=== PATIENT | female | born 1950 | race Caucasian/White ===

== ENCOUNTER → 2017-03-07 | Outpatient (CLI) | payer MEDICARE ==
[~2017-03-07] MED LIST: AMLO5TAB2 PO; ASPI81TA82 PO; ATOR40TA16 PO; ATOR40TA49 PO; CEPH-460 PO; CLOP75 PO; ESTR.625 PO; LISI-363 PO; LISI-515 PO; MECL25CH PO; METO50TA PO; PLAV75TA29 PO
[2017-03-07 14:16] LABS: HEMATOCRIT 41.4 % (35.0-46.0); MEAN CELL VOLUME 97.4 FL (80.0-100.0); MEAN CORPUSCULAR HEMOGLOBIN 34.1 PG (27.0-34.0); PLATELET COUNT 226 TH/MM3 (150-450); RED BLOOD COUNT 4.25 MIL/MM3 (4.00-5.30); RED CELL DISTRIBUTION WIDTH 13.1 % (11.6-17.2); REVIEW FLAG FINAL; WHITE BLOOD COUNT 6.5 TH/MM3 (4.0-11.0)
[2017-03-07 14:33] LABS: BLOOD, URINE NEG (NEG); GLUCOSE,URINE NEG (NEG); KETONE, URINE NEG (NEG); NITRITE,URINE NEG (NEG); PH, URINE 5.5 (5.0-8.5); SQUAMOUS EPITHELIAL CELL URINE <1 /hpf (0-5); URINE COLOR YELLOW (YELLW/STRAW)
--- NOTE | 2017-03-07 14:47 | RADRPT ---
EXAM DATE/TIME: 03/07/2017 13:58 [place] COMPARISON: No previous studies available for comparison. INDICATIONS : Evaluate for pneumonia, pneumothorax, or communicable disease. Pre of for abdominal surgery. MEDICAL HISTORY : Hypertension. Hiatal hernia. SURGICAL HISTORY : Hysterectomy. ENCOUNTER: Initial ACUITY: 1 day PAIN SCORE: 0/10 LOCATION: chest FINDINGS: PA and lateral views of the chest demonstrate the lungs to be symmetrically aerated without evidence of mass, infiltrate or effusion. The cardiomediastinal contours are unremarkable. Osseous structure s are intact. CONCLUSION: No acute disease. Gerhard Colindres MD on March 07, 2017 at 14:45 Board Certified Radiologist. This report was verified electronically.
[2017-03-07 14:54] LABS: ALT (GPT) 48 U/L (10-53); ANION GAP 10 MEQ/L (5-15); AST (GOT) 44 U/L (15-37); BLOOD UREA NITROGEN 11 MG/DL (7-18); CHLORIDE 101 MEQ/L (98-107); GLOMERULAR FILTRATION RATE 140 ML/MIN (>89); GLUCOSE,FASTING 89 MG/DL (74-99); POTASSIUM 3.9 MEQ/L (3.5-5.1); SODIUM (NA) 138 MEQ/L (136-145)
[2017-03-07 15:00] LABS: ALKALINE PHOSPHATASE 61 U/L (45-117); TOTAL BILIRUBIN ADULT 0.5 MG/DL (0.2-1.0)
--- NOTE | 2017-03-07 18:37 | EKG ---
Date Performed: 03/07/2017 Time Performed: 13:14:05 PTAGE: 67 years EKG: SINUS BRADYCARDIA BORDERLINE ECG Compared to prior electrocardiogram, rate has decreased PREVIOUS TRACING : 01/08/2014 10.31 DOCTOR: Ramírez Duron Interpretating Date/Time 03/07/2017 18:36:23
== END ==
LOC: CPRE 12:39
PROVIDERS: ATTEND Obstetrics & Gynecology
DX: Z01.812 Encounter for preprocedural laboratory examination (principal); Z01.811 Encounter for preprocedural respiratory examination; Z01.810 Encounter for preprocedural cardiovascular examination; N81.10 Cystocele, unspecified; N81.6 Rectocele; R94.31 Abnormal electrocardiogram [ECG] [EKG]
CPT/HCPCS: 36415; 71020; 80053; 81001; 85027; 93005

== ENCOUNTER 2017-03-12 09:09 | Inpatient (IN) | payer MEDICARE ==
[~2017-03-12] VITALS: Ht 157.5 cm; Wt 58.6 kg
[~2017-03-12 09:09] MED LIST changes: -ASPI81TA82 PO; -ATOR40TA49 PO; -CEPH-460 PO; -CLOP75 PO; -ESTR.625 PO; -LISI-363 PO; -MECL25CH PO
[2017-03-12] MEDS ORDERED: CHLORHEXIDINE GLUCONATE 2 % 1 PACK (2 CLOTHS) TOPICAL PRN (09:30)
[2017-03-12] MEDS ORDERED: INSULIN HUMAN REGULAR 1,000 UNITS/10 ML VIAL SQ PRN (09:30)
[2017-03-12] MEDS ORDERED: LACTATED RINGER'S 1000 ML IV PRN (09:30)
[2017-03-12] MEDS ORDERED: POVIDONE IODINE 5% (ANTISEPSIS KIT) 4 APPLICATIONS EACH NARE PRN (09:30)
[2017-03-12] MEDS ORDERED: SODIUM CHLORID 0.9% 500 ML IV PRN (09:30)
[2017-03-12] MEDS ORDERED: METOPROLOL TARTRATE 25 MG TAB PO PRN (09:30)
[2017-03-12] MEDS ORDERED: ESTROGENS CONJUGATED VAG CREA 15 APPL/30 GM TUBE ONE (09:40)
[2017-03-12] MEDS ORDERED: SODIUM CHLORIDE 0.9% 20 ML VIAL ONE (10:40)
[2017-03-12] MEDS ORDERED: FAMOTIDINE 20 MG/2 ML VIAL ONE (11:09)
[2017-03-12] MEDS ORDERED: LIDOCAINE HCL 1% PF 5 ML AMPULE OTHER ONE (11:25)
[2017-03-12] MEDS ORDERED: ONDANSETRON HCL 4 MG/2 ML VIAL IV PUSH ONE (11:25)
[2017-03-12] MEDS ORDERED: DEXAMETHASONE SOD PHOS 4 MG/ML VIAL IV ONE (11:25)
[2017-03-12] MEDS ORDERED: KETOROLAC TROMETHAMINE 60 MG/2 ML (IM) VIAL IM ONE (11:25)
[2017-03-12] MEDS ORDERED: PROPOFOL 200 MG/20 ML AMP IV ONE (11:25)
[2017-03-12] MEDS ORDERED: MIDAZOLAM HCL 2 MG/2 ML VIAL IV ONE (11:25)
[2017-03-12] MEDS ORDERED: DO NOT ADM ANY ANTICOAGULANT DRUGS PRN (13:46)
[2017-03-12] MEDS ORDERED: *morphine SULFATE 8 MG/ML PERIprocedure ONLY ONE (13:56)
[2017-03-12] MEDS ORDERED: ONDANSETRON HCL 4 MG/2 ML VIAL IVP PRN (14:00)
[2017-03-12] MEDS ORDERED: PROMETHAZINE HCL 25 MG TAB PO PRN (14:00)
[2017-03-12] MEDS ORDERED: SODIUM CHLORIDE 0.9% FLUSH 10 ML FLUSH IV FLUSH PRN (14:00)
[2017-03-12] MEDS ORDERED: ZOLPIDEM TARTRATE 5 MG TAB PO PRN (14:00)
[2017-03-12] MEDS ORDERED: HYDROmorphone HCL PF 1 MG/ML VIAL IVP PRN (14:00)
[2017-03-12] MEDS ORDERED: diphenhydrAMINE HCL 25 MG CAP PO PRN (14:00)
[2017-03-12] MEDS ORDERED: ONDANSETRON ODT 4 MG TAB PO PRN (14:00)
[2017-03-12] MEDS ORDERED: IBUPROFEN 600 MG TAB PO PRN (14:00)
[2017-03-12] MEDS: oxyCODONE/ACETAMINOPHEN 5 MG/325 MG TAB PO PRN ×2 (15:35→21:38)
[2017-03-12] MEDS: DOCUSATE SODIUM 100 MG CAP PO SCH (15:36)
[2017-03-12] MEDS: LACTATED RINGER'S 1000 ML INJ 1,000 ML IV SCH ×2 (15:50→21:34)
[2017-03-12 16:00] VITALS: BP 114/65; PULSE 66; RESP 16; TEMP 96.1; O2SAT 92
[2017-03-12 20:00] VITALS: BP 105/59; PULSE 68; RESP 17; TEMP 96.5; O2SAT 95
--- NOTE | 2017-03-12 20:31 | MP ---
cc: CATALINO PRESTON DATE OF SURGERY: 03/12/2017 PREOPERATIVE DIAGNOSIS: Symptomatic pelvic relaxation. Large cystocele. Moderate rectocele. POSTOPERATIVE DIAGNOSIS: Symptomatic pelvic relaxation. Large cystocele. Moderate rectocele. OPERATION: Anterior and posterior colpoperineorrhaphy. ANESTHESIA: General. SURGEON: Arcelia Preston MD. FINDINGS: A +3 cystocele, +2 rectocele. The vaginal cuff was well healed and not well suspended. COMPLICATIONS: None. COUNTS: Correct. ESTIMATED BLOOD LOSS: 50 cc. FLUIDS: Crystalloids. DISPOSITION: The patient tolerated the procedures well and went to the Recovery Room in good condition. DESCRIPTION OF PROCEDURE: The patient was taken to the operating room, identified by name band and verbally given a general anesthetic. She was prepped and draped in the usual sterile manner. A small suburethral incision was made in the anterior vaginal wall and in a sagittal plane it was taken all the way up to the vaginal cuff. The underlying endopelvic fascia was taken down and the excess mucosa was removed. The endopelvic fascia was then plicated in the midline with excellent results trying to lift the neck of the bladder superiorly. Once the plication of the endopelvic fascia had taken place, the mucosa was reapproximated with 3-0 Vicryl in an interrupted fashion with excellent results. Attention was turned to the posterior vagina. The weighted speculum was removed and the semi-lunar incision was made on the perineum. The mucosa was taken off the endopelvic fascia posteriorly in a sagittal manner to the apex of the vagina. The excess vaginal mucosa was then removed and the endopelvic fascia was reapproximated with 2-0 Vicryl in interrupted fashion. This built up the rectovaginal septum nicely and created a nice table of tissue. Once this had been accomplished, the mucosa was reapproximated with 3-0 Vicryl. The perineum was rebuilt taking a transverse incision and making it into a sagittal incision to build up the perineum. The remainder of the incision was repaired like an episiotomy with a 3-0 Vicryl in a subcuticular manner. At this point, the vagina was washed with fluid. A sponge stick was placed into the vagina. The patient tolerated the procedure well and went to the Recovery Room in good condition. RMD KOSTA Singh/CAROL /1:52 PM /8:00 PM
[2017-03-12] MEDS: SODIUM CHLORIDE 0.9% FLUSH 10 ML FLUSH IV FLUSH SCH (21:00)
[2017-03-12] MEDS: METOPROLOL TARTRATE 50 MG TAB PO SCH (21:00)
[2017-03-13] VITALS: BP 97/52; PULSE 65; RESP 18; TEMP 98.1; O2SAT 96
[2017-03-13 04:00] VITALS: BP 143/75; PULSE 77; RESP 18; TEMP 97.6; O2SAT 95
[2017-03-13] MEDS: LACTATED RINGER'S 1000 ML INJ 1,000 ML IV SCH ×3 (05:17→20:24)
[2017-03-13] MEDS: oxyCODONE/ACETAMINOPHEN 5 MG/325 MG TAB PO PRN ×5 (05:17→22:10)
[2017-03-13 06:44] LABS: AUTOMATED NEUTROPHIL # 9.7 TH/MM3 (1.8-7.7); BASOPHIL % 0.2 % (0.0-2.0); HEMATOCRIT 35.7 % (35.0-46.0); HEMO FLAGS DIFF FINAL; LYMPH % 7.9 % (9.0-44.0); LYMPHOCYTE # 0.9 TH/MM3 (1.0-4.8); MEAN CELL VOLUME 98.8 FL (80.0-100.0); MEAN CORPUSCULAR HEMOGLOBIN 33.3 PG (27.0-34.0); MEAN CORPUSCULAR HGB CONC 33.7 % (32.0-36.0); MONO % 7.6 % (0.0-8.0); NEUT % 84.3 % (16.0-70.0); PLATELET COUNT 206 TH/MM3 (150-450); RED BLOOD COUNT 3.61 MIL/MM3 (4.00-5.30); RED CELL DISTRIBUTION WIDTH 13.9 % (11.6-17.2); WHITE BLOOD COUNT 11.5 TH/MM3 (4.0-11.0)
[2017-03-13 07:06] LABS: BICARBONATE 23.9 MEQ/L (21.0-32.0); POTASSIUM 3.5 MEQ/L (3.5-5.1)
[2017-03-13] MEDS: SODIUM CHLORIDE 0.9% FLUSH 10 ML FLUSH IV FLUSH SCH ×2 (07:15→20:22)
[2017-03-13 08:00] VITALS: BP 117/56; PULSE 83; RESP 19; TEMP 98; O2SAT 95
[2017-03-13] MEDS: amLODIPine BESYLATE 5 MG TAB PO SCH (08:42)
[2017-03-13] MEDS: METOPROLOL TARTRATE 50 MG TAB PO SCH ×2 (08:42→20:23)
[2017-03-13] MEDS: DOCUSATE SODIUM 100 MG CAP PO SCH ×2 (08:42→20:21)
[2017-03-13] MEDS: LISINOPRIL 20 MG TAB PO SCH (08:42)
[2017-03-13] MEDS ORDERED: PNEUMOCOCCAL POLYVALENT INJ 25 MCG/0.5 ML SYR IM ONE (10:00)
[2017-03-13 12:00] VITALS: BP 113/65; PULSE 66; RESP 19; TEMP 97.6; O2SAT 96
--- NOTE | 2017-03-13 15:22 | HHI.DCPOC ---
Discharge Care Plan Diagnosis: (1) Cystocele with rectocele Report Symptoms to Your Doctor -Temperature above 100.5 degrees -Redness, of incision or excessive or foul smelling drainage -Unusual pain or calf pain -Increased vaginal bleeding -Painful or difficulty urinating -Feelings of extreme sadness or anxiety after 2 weeks Goals to Promote Your Health * To prevent worsening of your condition and complications * To maintain your health at the optimal level Directions to Meet Your Goals Take your medications as prescribed Follow your dietary instruction Follow activity as directed Ensure plenty of rest for recovery Drink fluids for hydration Keep your appointments as scheduled Take your immunizations and boosters as scheduled If your symptoms worsen call your PCP, if no PCP go to Urgent Care Center or Emergency Room Smoking is Dangerous to Your Health. Avoid second hand smoke Call the 24-hour crisis hotline for domestic abuse at Kacey Emerson Mar 13, 2017 15:22
[2017-03-13] MEDS ORDERED: DIAZEPAM 5 MG TAB PO PRN (15:30)
[2017-03-13 16:00] VITALS: BP 101/58; PULSE 69; RESP 19; TEMP 97.5; O2SAT 94
--- NOTE | 2017-03-13 18:16 | HHI.PR ---
Subjective Remarks Doing well, pain is well controlled Tolerating diet Objective Vital Signs Date Time Temp Pulse Resp B/P (MAP) Pulse Ox O2 Delivery O2 Flow Rate FiO2 03/13/17 16:00 97.5 69 19 101/58 (72) 94 03/13/17 12:00 97.6 66 19 113/65 (81) 96 03/13/17 08:00 98.0 83 19 117/56 (76) 95 03/13/17 04:00 97.6 77 18 143/75 (97) 95 03/13/17 00:00 98.1 65 18 97/52 (67) 96 03/12/17 20:00 96.5 68 17 105/59 (74) 95 I/O 03/12/17 03/12/17 03/12/17 03/13/17 03/13/17 03/13/17 07:00 15:00 23:00 07:00 15:00 23:00 Intake Total 950 ml 960 ml 600 ml 2848 ml Output Total 150 ml 350 ml 1400 ml Balance 800 ml 610 ml -800 ml 2848 ml Intake Oral 200 ml 960 ml 600 ml IV Total 2848 ml Other 750 ml Output Urine Total 100 ml 350 ml 1400 ml Estimated Blood Loss 50 ml # Bowel Movements 0 # Sanitary Pads 1 Pads 1 Pads Result Diagram: 03/13/17 0534 03/13/17 0534 Other Results Chest is clear CV RRR Abd soft nt Pelvic Packing removed Ext No CCE Assessment and Plan Assessment and Plan POD #1 S/P A&P repair doing well Will d/c rodriguez tomorrow and see if she can micturate and check PVR Arcelia Preston MD Mar 13, 2017 18:16
[2017-03-13 20:00] VITALS: BP 96/55; PULSE 68; RESP 20; TEMP 98.2; O2SAT 93
[2017-03-14 00:33] VITALS: BP 119/60; PULSE 80; RESP 18; TEMP 98.7; O2SAT 91
[2017-03-14 04:00] VITALS: BP 113/63; PULSE 74; RESP 18; TEMP 99.3; O2SAT 90
[2017-03-14] MEDS: oxyCODONE/ACETAMINOPHEN 5 MG/325 MG TAB PO PRN ×3 (04:18→13:33)
[2017-03-14] MEDS: LACTATED RINGER'S 1000 ML INJ 1,000 ML IV SCH ×2 (05:22→13:32)
[2017-03-14 08:52] VITALS: BP 142/70; PULSE 79; RESP 20; TEMP 96.2; O2SAT 96
[2017-03-14] MEDS: SODIUM CHLORIDE 0.9% FLUSH 10 ML FLUSH IV FLUSH SCH (09:00)
[2017-03-14] MEDS: amLODIPine BESYLATE 5 MG TAB PO SCH (09:41)
[2017-03-14] MEDS: DOCUSATE SODIUM 100 MG CAP PO SCH (09:41)
[2017-03-14] MEDS: METOPROLOL TARTRATE 50 MG TAB PO SCH (09:41)
[2017-03-14] MEDS: LISINOPRIL 20 MG TAB PO SCH (09:41)
[2017-03-14 12:16] VITALS: BP 109/62; PULSE 65; RESP 20; TEMP 98.3; O2SAT 93
[2017-03-14] MEDS ORDERED: CEPH-460 PO (15:36)
--- NOTE | 2017-03-14 15:40 | HHI.PR ---
Subjective Remarks Doing well, pain is well controlled Tolerating diet Ready to go home Objective Vital Signs Date Time Temp Pulse Resp B/P (MAP) Pulse Ox O2 Delivery O2 Flow Rate FiO2 03/14/17 12:16 98.3 65 20 109/62 (78) 93 03/14/17 08:52 96.2 79 20 142/70 (94) 96 03/14/17 04:00 99.3 74 18 113/63 (80) 90 03/14/17 00:33 98.7 80 18 119/60 (79) 91 03/13/17 20:00 98.2 68 20 96/55 (69) 93 03/13/17 16:00 97.5 69 19 101/58 (72) 94 I/O 03/13/17 03/13/17 03/13/17 03/14/17 03/14/17 03/14/17 07:00 15:00 23:00 07:00 15:00 23:00 Intake Total 600 ml 2848 ml 1680 ml Output Total 1400 ml 3050 ml 750 ml 1500 ml 375 ml Balance -800 ml 2848 ml -1370 ml -750 ml -1500 ml -375 ml Intake Oral 600 ml 1680 ml IV Total 2848 ml Output Urine Total 1400 ml 3050 ml 750 ml 1500 ml 375 ml Bladder Scan Volume Amount 224 ml 222 ml 361 ml # Voids 5 # Bowel Movements 0 # Sanitary Pads 1 Pads 1 Pads Result Diagram: 03/13/17 0534 03/13/17 0534 Other Results Chest is clear Heart has a regular rate and rhythm Abdomen is soft and nontender Pelvic small amount of spotting Extremities no clubbing cyanosis or edema Assessment and Plan Assessment and Plan POD #2 S/P A&P repair doing well Urinary retention we removed the March today and her postvoid residuals were in the 200-300 range. She needs to go home with a leg bag March and we will remove it next week in the office in the meantime will give her some Keflex to take twice a day to prevent urinary tract infections she is a [employer] and will be very comfortable doing this at home. We will see her in the office next week to remove her March and check her postvoid residuals. She has an excellent repair Discharge instructions were given including no heavy lifting constipation and just to take it easy and I will see her next week in the office Arcelia Preston MD Mar 14, 2017 15:40
== END 2017-03-14 16:22 | disposition home or self-care (01) | DRG 748 ==
LOC: HSDI 09:09 → HOCA 15:12
PROVIDERS: ADMIT Obstetrics & Gynecology; ATTEND Obstetrics & Gynecology
PROC: 0JQC0ZZ Repair Pelvic Region Subcutaneous Tissue and Fascia, Open Approach (ICD-10-PCS; 2017-03-12)
PROC: 0JQC0ZZ Repair Pelvic Region Subcutaneous Tissue and Fascia, Open Approach (ICD-10-PCS; principal; 2017-03-12 11:53)
DX: N81.4 Uterovaginal prolapse, unspecified (principal); I10 Essential (primary) hypertension; F17.210 Nicotine dependence, cigarettes, uncomplicated; K21.9 Gastro-esophageal reflux disease without esophagitis; Z87.820 Personal history of traumatic brain injury; N99.89 Other postprocedural complications and disorders of genitourinary system; R33.8 Other retention of urine
CPT/HCPCS: 80048; 85025; 86850; 86900; 86901; J1100; J1885; J2250; J2270; J2405; J3010; J7120